=== PATIENT | female | born 1965 | race Caucasian/White ===

== ENCOUNTER 2025-05-08 05:53 | Day surgery (SDC) | payer OTHER, SELFPAY ==
[2025-04-29 12:49] VITALS: BMI 48.2
[2025-04-29 13:00] LABS: Hematocrit 46.2 % (37.0-47.0); Hemoglobin 14.9 g/dL (12.0-16.0); Mean Corp Hgb Conc. 32.3 g/dL (33.0-37.0); Mean Corpuscular Volume 82.4 fL (81.0-99.0); Nucleated Red Blood Cells % 0 %; Platelet Count 286 10^3/uL (130-400); Red Cell Dist. Width 14.8 % (11.5-14.5)
[2025-04-29 13:17] LABS: ALT (SGPT) 19 U/L (0-35); AST (SGOT) 18 U/L (14-36); Albumin 4.2 g/dl (3.5-5.0); Alkaline Phosphatase 79 U/L (38-126); Blood Urea Nitrogen 9 mg/dl (7-17); Calcium 9.5 mg/dl (8.4-10.2); Carbon Dioxide 28 mmol/L (22-30); Chloride 103 mmol/L (98-107); Estimated Creatinine Clearance > 125 ml/min; Glucose 184 mg/dl (70-99); Magnesium 2.0 mg/dl (1.6-2.3); Potassium 4.1 mmol/L (3.5-5.1); Sodium 137 mmol/L (135-145); Total Protein 8.2 g/dl (6.3-8.2); eGFR > 60.00
[2025-04-29 13:18] LABS: INR 1.07; PT 14.4 Sec (11.4-14.6)
--- NOTE | 2025-05-01 17:41 | W.PN.UPDATE ---
Update Note
Progress Note Update
Multinodular thyroid goiter.--PCP Claire Lopez and patient made aware.
[2025-05-08] VITALS (14 sets, daily range): BP systolic 109–156; BP diastolic 59–106
[2025-05-08 06:56] LABS: Glucose - Point of Care 151 mg/dl (70-99)
--- NOTE | 2025-05-08 07:53 | ITS.CL.ABL ---
[employer] - Ablation
Ablation
Procedure Report:
Primary Health Care Analyst: Dr Rubi
Procedure Date: 05/08/2025
Patient History:
Patient is a pleasant 60-year-old female with a past medical history significant for hypertension, hyperlipidemia, sleep apnea, hypothyroidism, diabetes mellitus type 2, obesity, endometrial cancer, and symptomatic persistent atrial fibrillation.
See H&P for complete details.
Indication:
Symptomatic persistent atrial fibrillation
Recurrence despite antiarrhythmic medical therapy
Arrhythmia Specific History:
Prior Medical Therapies for Rate and Rhythm Control:
X Beta-zaida
[ ] Calcium channel-zaida
[ ] Amiodarone
[ ] Dronederone
X Sotalol
[ ] Flecainide
[ ] Dofetilide
[ ] Options limited by bradycardia
[ ] Options limited by comorbid renal disease
Prior Procedural Therapies for AF/AFL:
X Cardioversion
[ ] Pulmonary Vein Isolation
[ ] Posterior Wall Isolation
[ ] Additional lines (Specify)
[ ] Surgical Conti-MAZE or PVI (Specify)
Procedure Performed:
X AF ablation procedure (60336) -- includes LA/CS pacing, trans-septal, 3D mapping, + ICE
[ ] +IV drug (79508)
[ ] +Other Arrhythmia (33576)
X +Other AF Line/ablation (40085) -- floor line, roof line, posterior wall isolation
Risks and expected recovery has been explained in detail. Alternative options have been explored, and in a shared-decision making fashion we have decided that this was the most appropriate procedure.
Method
NPO status confirmed. Grounding pad applied. Defibrillator pads applied. Continuous surface ECG, pulse oximetry, and blood pressure were monitored. Procedure was performed under general anesthesia, with anesthesia services.
Both groins were clipped, prepped with Chloraprep, and draped in sterile fashion. Time out was called. Local anesthesia administered with bupivacaine. The right femoral vein was accessed for catheter placement, using ultrasound guidance (images
saved to record), micro-puncture needle/wire, and modified seldinger technique. 3 sheaths were placed. The following catheters were used:
[ ] Tacticath SE (D/F Curve) ablation catheter
X Viewflex 9Fr ICE catheter
X Inquiry decapolar 6Fr diagnostic catheter
[ ] CRD Hex 6Fr
X FlexCath Contour 10 Fr with PulseSelect PFA Catheter
X Advisor HD Grid Mapping Catheter, SE
[ ] Acuson AcuNav 8 Fr ICE catheter
[ ]Other: [ ]
Intracardiac ultrasound (ICE) was carefully advanced into the right atrium to guide sheath placement over a J-wire, catheter placement, guide trans-septal puncture, identify potential complications, identify anatomic structures and ensure proper
contact between ablation catheter and tissue.
Heparin was given prior to trans-septal puncture. Heparin was given to achieve and maintain a target ACT of 300-400 seconds throughout the procedure.
Trans-septal access was performed under ICE guidance. The trans-septal puncture was performed with a SafeSept wire through a Brockenbrough needle assembly through the steerable sheath. The wire was visualized as it entered the LSPV and system
advanced under ICE guidance and fluoroscopy into the LA. The Brockenbrough needle assembly, SafeSept wire and sheath dilator were removed under negative pressure. LA pressure was measured and recorded.
ICE and 3D mapping was performed to identify relevant cardiac structures. A careful 3D map was created to assess for regions of low-voltage and abnormal electrogram signals using HD grid mapping catheter and PulseSelect catheter. Additional mapping
was performed as outlined below. Patient was noted by CT scan and through electroanatomic mapping to have a left common vein. The extension of the common vein ostium into the chamber was beyond the midway point of the posterior wall and close the
ostium of the right superior pulmonary vein. A 200 J synchronized recurrent cardioversion was performed however patient had spontaneous return to AF.
Prior to ablation, glycopyrrolate was provided. PulseSelect catheter was advanced over J-wire to the ostium of each vein. Pulmonary vein isolation was performed with ostial and antral lesions in a circumferential manner. Contact was visualized via
EAM, ICE, fluoroscopy, and EGM signals.
After accomplishing pulmonary venous isolation, mapping identified additional areas likely to be extra PV contributors to atrial fibrillation. These areas demonstrated patchy low voltage as well as complex fractionated electrograms. These areas can
be sites for the formation of rotors which can drive and maintain atrial fibrillation. These areas are known to be significant contributors to initiation and perpetuation of atrial fibrillation.
Additional energy applications/additional ablation sets targeted extra PV contributors to atrial fibrillation.
Targets for additional PFA ablation included: LA posterior wall targeted with pulsed electric field energy isolating the posterior wall of the left atrium. Posterior wall isolation was performed by anchoring the J-wire within the pulmonary vein and
placing the PulseSelect catheter in contact posterior wall as visualized by aforementioned methods.
After ablation of the posterior wall, targets remained including:
- Inferior LA floor
- Anterior LA roof
- The ridge of tissue between the left atrial appendage and the left sided pulmonary veins (Ligament of Sav)
These areas were ablated using pulsed electric field energy eliminating the extra PV contributors to atrial fibrillation.
Following completion of ablation lesions, sinus rhythm was restored with a 360 J synchronized DCCV and a post-ablation voltage/activation map was performed in sinus rhythm. Entrance and exit block were confirmed for each vein and the posterior wall.
Acute reconnection was noted at the left superior pulmonary vein and along the ridge between left superior pulmonary vein and roof and appendage. Ablation was then performed in that region of the left superior common ostium on the roof. Patient
had spontaneous AF during ablation and synagogue of sinus rhythm was performed with an additional 360 J synchronized direct-current cardioversion. Repeat electroanatomic mapping demonstrated persistent entrance and exit block with no further
signals.
Catheter and sheath were removed from the left atrium and post-ablation intracardiac echo evaluation was consistent with pre-ablation with no changes and no pericardial effusion and there is no left atrial thrombus or left ventricle thrombus seen.
Electrophysiology study was performed. Hemostasis was obtained with figure of 8 stitch for each groin and with manual pressure. Protamine was used for reversal.
Estimated Blood Loss
5 mL
Complications
None
Fluoroscopy: 4.0 minutes; 51.01 mGy; DAP 5.27
LA Pressure: Pre 16 mmHg, post 18 mmHg
Baseline Intervals:
Rhythm: AF
QRS: 93 ms
QT: 397 ms
Post-Procedure Intervals:
IN: 232 ms
QRS: 101 ms
QT: 402 ms
QTc: 452 ms
A-A: 790 ms
R-R: 790 ms
AVNERP: 600/340 ms
AERP: 600/220 ms
Recommendations
- Bedrest with straight-leg precautions as ordered
- Anticipate same day discharge if patient meeting clinical metrics
- Resume home medications as indicated
- Ok to resume anticoagulation tonight if patient and groin sites stable
- Plan for follow-up in office as scheduled
� Continue sotalol 80 mg twice daily with plan for discontinuation at the 3-month interval post ablation
Sung Wild DO, FACC, FH[facility]
Clinical Cardiac Cordwainer
cc: Dr Rubi; Dr Claire Lopez
[2025-05-08 08:44] LABS: ACT-LR - POC 285 Seconds (116-155)
[2025-05-08 08:52] LABS: Glucose - Point of Care 121 mg/dl (70-99)
[2025-05-08 09:02] LABS: ACT-LR - POC 271 Seconds (116-155)
[2025-05-08 09:25] LABS: ACT-LR - POC 348 Seconds (116-155)
[2025-05-08 09:40] LABS: ACT-LR - POC 311 Seconds (116-155)
[2025-05-08 09:55] LABS: ACT-LR - POC 314 Seconds (116-155)
[2025-05-08 10:12] LABS: ACT-LR - POC 339 Seconds (116-155)
[2025-05-08 10:20] LABS: Glucose - Point of Care 149 mg/dl (70-99)
[2025-05-08 11:47] LABS: Glucose - Point of Care 155 mg/dl (70-99)
--- NOTE | 2025-05-08 15:30 | W.PN.UPDATE ---
Update Note
Progress Note Update
Pt seen post PFA. Right groin without ht/bleeding, non tender. OOB ambulating. Post EKG NSR 64, no acute changes. Resume xarelto tonight, continue other meds as before. Followup with Dr. Rubi as scheduled. Home later today if groin
site/tele remain stable.
== END 2025-05-08 15:10 | disposition home or self-care (01) ==
LOC: CATH 05:53
PROVIDERS: ATTENDING PHYSICIAN Internal Medicine Cardiovascular Disease; FAMILY PHYSICIAN Family Medicine; OTHER PHYSICIAN Internal Medicine Cardiovascular Disease
DX: I48.19 Other persistent atrial fibrillation (principal); E66.01 Morbid (severe) obesity due to excess calories; Z68.42 Body mass index [BMI] 45.0-49.9, adult; F41.9 Anxiety disorder, unspecified; F32.A Depression, unspecified; E11.29 Type 2 diabetes mellitus with other diabetic kidney complication; Z79.84 Long term (current) use of oral hypoglycemic drugs; I10 Essential (primary) hypertension; E03.9 Hypothyroidism, unspecified; G47.33 Obstructive sleep apnea (adult) (pediatric); Z85.42 Personal history of malignant neoplasm of other parts of uterus; Z87.891 Personal history of nicotine dependence; Z90.710 Acquired absence of both cervix and uterus; Z90.722 Acquired absence of ovaries, bilateral; Z79.899 Other long term (current) drug therapy; Z79.890 Hormone replacement therapy; Z91.013 Allergy to seafood; E04.2 Nontoxic multinodular goiter; E78.5 Hyperlipidemia, unspecified; Z79.01 Long term (current) use of anticoagulants; Z90.49 Acquired absence of other specified parts of digestive tract
CPT/HCPCS: C1733; C1766; C1732; C1894; C1730; C1769; 36415; 75572; 80053; 82962; 83735; 85025; 85347; 85610; 86850; 86900; 86901; 93005; 93656; 93657; Q9967